=== PATIENT | female | born 1955 | race Caucasian/White ===

== ENCOUNTER 2016-05-01 09:56 | Outpatient (CLI) | payer OTHER ==
--- NOTE | 2016-05-01 12:57 | DIAGNOSTIC IMAGING REPORT ---
PROCEDURE: US RENAL VASCULAR - BILATERAL INDICATION: BRUIT TECHNIQUE: Simons scale and color Doppler sonographic images of the kidneys were performed. Spectral waveform analysis was obtained of the renal arteries, intrarenal vessels, and aorta, including renal resistive indices and calculation of renal to aortic ratios. COMPARISON: None. FINDINGS: Superior mesenteric artery velocity of 389 cm/sec equates to a greater than 70% stenosis. AORTIC VELOCITY: 94 cm/sec RIGHT KIDNEY: Right kidney is of normal size 10.3 x 5.2 x 5.0 cm) with normal morphology. RIGHT RENAL ARTERY VELOCITIES: Right renal artery velocities are normal (proximal 150 cm/s; mid 126 cm/s; distal 90 cm/s). RIGHT RENAL AORTIC RATIO: Right renal to aortic ratios are normal (proximal 1.6 mid 1.3 distal 0.95 RIGHT RENAL RESISTIVE INDICES: Right renal resistive indices are normal (upper pole 0.69 midpole 0.67 inferior pole 0.54 LEFT KIDNEY: Left kidney is of normal size 9.6 x 4.3 x 4.9 cm) with normal morphology. LEFT RENAL ARTERY VELOCITIES: Left renal artery velocities are normal (proximal 83 cm/s; mid 82 cm/s; distal 73 cm/s). LEFT RENAL AORTIC RATIO: Left renal to aortic ratios are normal (proximal 0.9 mid 0.9 distal 0.8 LEFT RENAL RESISTIVE INDICES: Left renal resistive indices are normal (upper pole 0.67 midpole 0.59 inferior pole 0.55 IMPRESSION: 1. 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 2. Normal renal vasculature.
--- NOTE | 2016-05-01 19:35 | DIAGNOSTIC IMAGING REPORT ---
PROCEDURE: MG BILATERAL SCREENING W/CAD INDICATION: SCREENING TECHNIQUE: Standard CC and MLO views bilaterally. Computer aided detection was used. COMPARISON: 02/28/2013, 02/24/2013, 12/05/2008 FINDINGS: Mildly dense fibroglandular tissue is present bilaterally. Stable focal asymmetric parenchyma in the right breast. No developing densities, areas of architectural distortion, or suspicious microcalcifications. IMPRESSION: 1. Stable mammograms without radiographic evidence of malignancy. RESULT CODE: 2- Benign findings. A. A negative report should not delay biopsy if a dominant or clinically suspicious mass is present. 10-15% of cancers are not identified by x-ray. B. A negative report may reinforce clinical impression. C. Adenosis and dense breasts may obscure an underlying neoplasm. D. False positive reports average 6-10%. E.. A yearly screening mammogram is recommended. A reminder letter will be scheduled.
== END 2016-05-01 23:00 | disposition home or self-care (01) ==
LOC: US SRH 09:56
DX: Z12.31 Encounter for screening mammogram for malignant neoplasm of breast (principal); K55.1 Chronic vascular disorders of intestine